=== PATIENT | male | born 1980 | race Two or more races ===

== ENCOUNTER 2017-11-30 14:13 | Emergency (ER) | payer MEDICAID ==
[~2017-11-30] VITALS: Ht 170.2 cm; Wt 65.3 kg
[2017-11-30 14:13] VITALS: BP 141/74
[2017-11-30] MEDS ORDERED: ALBU8.5H8 INH (14:36)
[2017-11-30] MEDS ORDERED: IBUPROFEN 600 MG TABLET PO ONE ×2 (17:30→17:34)
[2017-11-30] MEDS ORDERED: ACETAMINOPHEN 325 MG TABLET PO ONE (17:30)
[2017-11-30] MEDS ORDERED: ACETAMINOPHEN ES 500 MG TABLET ONE (17:34)
== END 2017-11-30 18:45 | disposition home or self-care (01) ==
LOC: ER 14:18
DX: S22.32XA Fracture of one rib, left side, initial encounter for closed fracture (principal); J45.909 Unspecified asthma, uncomplicated; Z88.6 Allergy status to analgesic agent; Z88.5 Allergy status to narcotic agent; Z60.2 Problems related to living alone; Y04.0XXA Assault by unarmed brawl or fight, initial encounter; Y92.89 Other specified places as the place of occurrence of the external cause; Y93.89 Activity, other specified; Y99.8 Other external cause status
CPT/HCPCS: 71045-TC; A4606; Z7610